=== PATIENT | female | born 1990 | race Caucasian/White ===

== ENCOUNTER 2016-05-05 09:52 | Emergency (ER) | payer OTHER ==
[~2016-05-05 09:52] MED LIST: PERCOCET 5/3251 TAB PO; PHENERGAN12.5 M1 PO
== END 2016-05-05 10:05 | disposition home or self-care (01) ==
LOC: FER 09:52
DX: S92.422A Displaced fracture of distal phalanx of left great toe, initial encounter for closed fracture (principal); F17.200 Nicotine dependence, unspecified, uncomplicated; W22.8XXA Striking against or struck by other objects, initial encounter
CPT/HCPCS: 73630